=== PATIENT | male | born 1960 | race Caucasian/White ===

== ENCOUNTER 2016-08-09 08:12 | Emergency (ER) | payer BC, OTHER ==
--- NOTE | 2016-08-09 08:50 | ERNOTE ---
Date of Service: 08/09/16 Time Seen by Provider: 08/09/16 08:49 Stated Complaint: TROUBLE BREATHING/COPD/COUGHING Presenting Symptoms:: cough, runny nose, other - congestion; SOB Source: patient Exam Limitations: no limitations Immunizations: IMMUNIZATION HX History of Influenza Vaccine No Hx Pneumococcal Vaccination No Allergies/Adverse Reactions: Allergies No Known Allergies Allergy (Unverified 08/09/16 08:22) Home Medications: HOME MEDICATIONS Benzonatate [Tessalon Perle] 2 cap PO Q8H PRN #60 capsule 08/09/16 [Last Taken Unknown] Clarithromycin [Biaxin] 1 tab PO BID #14 tablet 08/09/16 [Last Taken Unknown] Guaifenesin/Pseudoephedrne HCl [Mucinex D ER 1,200-120 mg Tab] 1 each PO Q12H PRN #24 tab 08/09/16 [Last Taken Unknown] - History of Present Ilness Narrative: Presents with c/o runny nose, cough, congestion, SOB, and wheezing, for about one week. Pt has h/o COPD, and is a long time smoker. Claims OTC meds not effective. Timing: constant Severity: moderate Modifying Factors - Improves: Reports: nothing Associated Symptoms: Reports: cough, shortness of breath, wheezing, nasal congestion, nasal drainage, fever/chills. Denies: chest pain/soreness Review of Systems - Review of Systems Constitutional: Present: See HPI EYE: Present: no symptoms reported ENT: Present: See HPI, nose congestion, nasal drainage. Absent: sore throat Respiratory: Present: See HPI, shortness of breath, cough, wheezing Cardiology: Present: no symptoms reported Gastrointestinal/Abdominal: Present: no symptoms reported Genitourinary: Present: no symptoms reported Musculoskeletal: Present: no symptoms reported Skin: Present: no symptoms reported Neurological: Present: no symptoms reported Endocrine: Present: no symptoms reported Hematologic/Lymphatic: Present: no symptoms reported Psych: Present: no symptoms reported All Other Systems: All systems neg except as marked - Patient's Past Medical History Patient History - Medical: Hypothyroidism Patient History - Cardiac/Respiratory: Asthma, COPD, Hypertension, Hyperlipidemia, Myocardial Infarction Patient History - Cancer: No Hx of Cancer Patient History - Surgical Procedures: Cardiac stent Patient History - Other: None - Social History Living Situations: home Psych History: Hx of Anxiety Smoking Status: Current every day smoker Alcohol Use: none - Immunizations Hx Pneumococcal Vaccination: No History of Influenza Vaccine: No Physical Exam - Physical Exam General Appearance: Present: wd/wn, alert, no apparent distress Eye Exam: Normal inspection: bilateral, PERRL: bilateral, EOMI: bilateral Ears, Nose, Throat: Present: nasal congestion, normal pharynx, other - nasal drainage Neck: Present: normal inspection Respiratory: Present: no accessory muscle use, rhonchi, wheezing - Faint expiratory wheezes. Cardiovascular/Chest: Present: regular rate, rhythm, no murmur Neurological Exam: Present: alert, oriented, normal mood/affect Skin Exam: Present: normal color, warm/dry ED Progress - Vital Signs Patient's Vital Signs:: I have reviewed the patient's vital signs. Vital Signs: Vital Signs 08/09/16 08:18 Temperature 37.1 C Pulse Rate 75 Respiratory 16 Rate Blood Pressure 165/95 O2 Sat by Pulse 91 Oximetry - X-Ray X-Ray #1 X-Ray: chest Interpretation: Reviewed by - CHRISTIANO - Progress/Reassessment Chief Complaint: Upper Respiratory Symptoms Progress:: Improved Departure - Departure Clinical Impression: COPD (chronic obstructive pulmonary disease) with acute bronchitis Disposition: Home self-care Condition: Good Instructions: Acute Bronchitis, [id number], Chronic Obstructive Pulmonary Disease Exacerbation, [id number] Prescriptions: Benzonatate [Tessalon Perle] 2 cap PO Q8H PRN #60 capsule PRN Reason: Cough Clarithromycin [Biaxin] 1 tab PO BID #14 tablet Guaifenesin/Pseudoephedrne HCl [Mucinex D ER 1,200-120 mg Tab] 1 each PO Q12H PRN #24 tab PRN Reason: cough, runny nose, congestion
[2016-08-09 08:56] VITALS: BP 152/94
[2016-08-09] MEDS ORDERED: DEXAMETHASONE SOD PHOSPHATE 10 MG/ML VIAL IM ONE (09:00)
[2016-08-09] MEDS ORDERED: ALBUTEROL SULFATE/IPRATROPIUM 3 ML NEBU IH ONE ×2 (09:00→09:07)
[2016-08-09] MEDS ORDERED: DEXAMETHASONE SOD PHOSPHATE 10 MG/ML VIAL ONE (09:07)
== END 2016-08-09 10:30 | disposition home or self-care (01) ==
LOC: ER 08:12
DX: J44.0 Chronic obstructive pulmonary disease with (acute) lower respiratory infection (principal); J20.9 Acute bronchitis, unspecified; F17.210 Nicotine dependence, cigarettes, uncomplicated

== ENCOUNTER 2016-09-11 08:43 | Emergency (ER) | payer BC ==
[2016-09-11 08:43] VITALS: BP 152/94
--- NOTE | 2016-09-11 09:20 | ERNOTE ---
Date of Service: 09/11/16 Time Seen by Provider: 09/11/16 09:19 Stated Complaint: COPD OR ALLERGIES Presenting Symptoms:: cough, runny nose Source: patient Exam Limitations: no limitations Immunizations: IMMUNIZATION HX History of Influenza Vaccine No Hx Pneumococcal Vaccination No Allergies/Adverse Reactions: Allergies No Known Allergies Allergy (Verified 09/11/16 08:53) Home Medications: HOME MEDICATIONS Azithromycin [Zithromax] 500 mg PO NOW #6 tab 09/11/16 [Last Taken Unknown] Methylprednisolone [Medrol Dosepak] 4 mg PO QID #21 tab 09/11/16 [Last Taken Unknown] - History of Present Ilness Narrative: PT C/O OF COGH AND CONGESTION AND WORSENING OF HIS COPD FOR THE PAST WEEK. HE STILL SMOKES. HE WAS HERE 1 MONTH AGO WITH SAME COMPLAINTS . HE HAS NOT FOUND A PCP SINCE HE MOVED BACK HERE. NO FEVER. NO CHEST PAIN. USES SYMBICORT 1-2 X DAY AND ALBUTEROL INHALER 4-6 TIMES A DAY. Review of Systems - Review of Systems Constitutional: Present: See HPI ENT: Present: nose congestion, nasal drainage Respiratory: Present: shortness of breath, cough Cardiology: Present: no symptoms reported Gastrointestinal/Abdominal: Present: no symptoms reported Genitourinary: Present: no symptoms reported Musculoskeletal: Present: no symptoms reported Skin: Present: no symptoms reported Neurological: Present: no symptoms reported Psych: Present: no symptoms reported All Other Systems: All systems neg except as marked - Patient's Past Medical History Patient History - Medical: Hypothyroidism Patient History - Cardiac/Respiratory: Asthma, COPD, Hypertension, Hyperlipidemia, Myocardial Infarction Patient History - Cancer: No Hx of Cancer Patient History - Surgical Procedures: Cardiac stent Patient History - Other: None - Social History Living Situations: home Psych History: Hx of Anxiety Smoking Status: Current every day smoker Alcohol Use: none - Immunizations Hx Pneumococcal Vaccination: No History of Influenza Vaccine: No Physical Exam - Physical Exam General Appearance: Present: wd/wn, alert, no apparent distress Ears, Nose, Throat: Present: normal except -, nasal congestion Neck: Present: normal inspection Respiratory: Present: no respiratory distress, no accessory muscle use, chest nontender, other - PT WITH BILATERAL DIFFUSE EXP WHEEZES AND OCC RONCHI NO RALES HEARD. Back Exam: Present: normal inspection Neurological Exam: Present: alert, oriented Skin Exam: Present: normal color ED Progress - Vital Signs Patient's Vital Signs:: I have reviewed the patient's vital signs. Vital Signs: Vital Signs 09/11/16 08:50 Temperature 36.7 C Pulse Rate 64 Respiratory 14 Rate Blood Pressure 152/94 O2 Sat by Pulse 93 Oximetry - Progress/Reassessment Chief Complaint: Upper Respiratory Symptoms Departure - Departure Clinical Impression: COPD (chronic obstructive pulmonary disease) with acute bronchitis Disposition: Home Follow Up Needed Condition: Fair Instructions: Smoking Cessation, Tips for Success, [id number], Chronic Obstructive Pulmonary Disease Exacerbation, [id number] Additional Instructions: CONTINUE YOUR INHALERS BEFORE. ADD THE MEDROL DOSE PACK AND ZITHROMAX DIRECTED. YOU NEED TO FOLLOW UP WITH A PRIMARY CARE DOCTOR IN 2-3 DAYS OR SOONER IF WORSE. STOP. STOP SMOKING. DRINK EXTRA CLEAR FLUIDS. Prescriptions: Azithromycin [Zithromax] 500 mg PO NOW #6 tab Methylprednisolone [Medrol Dosepak] 4 mg PO QID #21 tab
== END 2016-09-11 09:48 | disposition home or self-care (01) ==
LOC: ER 08:43
DX: J44.0 Chronic obstructive pulmonary disease with (acute) lower respiratory infection (principal); J20.9 Acute bronchitis, unspecified; J45.909 Unspecified asthma, uncomplicated; F17.210 Nicotine dependence, cigarettes, uncomplicated